=== PATIENT | female | born 1980 | race Caucasian/White ===

== ENCOUNTER 2023-09-19 15:09 | Outpatient (AMB) | payer BC, SELFPAY ==
--- NOTE | 2023-09-19 15:15 | MHC.OFFVIS ---
Intake Vital Signs 09/19/23 15:19 Height 5 ft 7 in Weight 195 lb BMI 30.5 BP 117/58 L Blood Pressure Location Lt brachial Position Sitting Pulse 87 Pulse Source Pulse Oximeter Pulse Oximetry (%) 100 Oxygen Delivery Method Room Air Intake Visit Reasons: Back pain/confirmed Allergies sulfamethoxazole [From Bactrim] Allergy (Unknown, Verified 09/19/23 15:17) Hives trimethoprim [From Bactrim] Allergy (Unknown, Verified 09/19/23 15:17) Hives HPI Back pain/confirmed HPI Details Patient is a pleasant 43 years old female with history of chronic back pain and chronic UTIs, presents today for initial evaluation of chronic right sided low back pain. Denies any past or recent trauma, injury or falls. Back pain is axial with facet mediated and discogenic components as well as paraspinal muscle tenderness and spasms. Reports no improvement with PT, massage and over the counter medication and topical applications. Heat alleviates her symptoms temporarily and partially. She completed renal US and lumbar spine MRI which are noted below and show normal renal study and mild changes of multilevel lumbar spondylosis without central or neuroforaminal stenoses. Patient is hesitant toward interventional treatments at this time. She would like to proceed with acupuncture referral and muscle relaxant trial. Denies any fever, abdominal or groin pain, weakness, foot drop, bladder or bowel dysfunction or saddle anesthesia. Location Right lower back pain Duration 1+ years Characteristics of symptom or complaint Pulsing, throbbing, pounding, dull, sore, numbness, aching, heavy Aggravating or associated factors Prolonged standing, sitting, laying Relieving factors Heat therapy, Tylenol Treatment PT- no improvement, full body massage-minimal improvement PFSH Medical History (Updated 09/20/23 @ 14:13 by LIANET Huggins) Back pain Hernia Acute hemorrhoid Gall stones Social History (Updated 09/19/23 @ 15:21 by Mercedez Kaur) Alcohol intake: current Alcohol intake frequency: a few times a month Patient Tobacco Use Status: Never used Tobacco Review of Systems Const All systems reviewed & are unremarkable except as noted in HPI and below Reports as per HPI, Denies body aches, Denies chills, Denies difficulty sleeping, Reports fatigue, Denies fever(s), Denies frequent falls, Denies malaise, Denies weakness and Denies weight loss Denies hematuria, Denies difficulty voiding, Denies dysuria, Denies pelvic pain and Denies urinary incontinence Musc Reports as per HPI, Denies abnormal gait, Reports back pain, Denies myalgias, Denies arthralgias, Denies numbness, Denies radiating pain into limb, Reports stiffness and Denies tingling Neuro Denies abnormal gait, Denies frequent falls, Denies numbness, Denies Sensory deficit (Neuro), Denies tingling and Denies weakness Endo Reports fatigue Physical Exam Vital Signs: Last Vital Signs Pulse 87 09/19/23 15:19 BP 117/58 L 09/19/23 15:19 Pulse Ox 100 09/19/23 15:19 Oxygen Delivery Method Room Air 09/19/23 15:19 BMI result Body Mass Index 30.5 General: Appears afebrile. Alert and oriented. Mood and affect appropriate. Follows and participates in conversation appropriately. Respiratory effort is unlabored. No cough. Wearing a facemask. Able to transition from sit to stand unassisted. Ambulates with bilaterally normal heel strike and toe off. Back/Spine/Pelvis Other: Patient is able to walk and stand on heels and tip toes with no difficulties demonstrating good motor tone. No limping. Can flex forward to 70-80 degrees and extend to 5-10 degrees before experiencing lumbar pain. Demonstrates 5/5 strength of quadriceps bilaterally as well as flexion/dorsiflexion of bilateral feet against resistance. 2+ pedal pulses bilaterally. Seated straight leg rise with dorsiflexion negative bilaterally. +2 patellar and achilles reflexes bilaterally. Facet loading test positive bilaterally. Dayanara sign, Britton?s, Pelvic compression and Stinchfield tests are negative bilaterally. No groin pain with I/E hip rotations. Moderate paraspinals tenderness mostly on the right mid and lower back. Valsalva maneuver negative. Cervical Spine: cervical ROM normal and No Cervical spine tenderness Thoracic/Lumbar Spine: thoracic and lumbar spine normal to inspection, Thoracic/lumbar spine scar(s), Lasegue's sign negative, straight leg raise negative bilaterally, pain with thoraco-lumbar ROM, paraspinal muscle tenderness on the right in the lower thoracic, in the mid lumbar and in the lower lumbar, No thoracic spinal tenderness and No lumbar spinal tenderness Pelvis: no buttock tenderness Sacroiliac joints: bilaterally nontender Neuro General: CN's II-XI intact bilaterally and deep tendon reflexes 2+ bilaterally Gait exam (Neuro): Normal gait present and No Assistive device used Motor exam (neuro): 5/5 motor strength present throughout, no tremor noted and Motor abnormalities not present Sensory Exam: No Sensory deficit (Neuro) Extrem General: Yes capillary refill normal, Yes no clubbing, cyanosis or edema and Yes no calf tenderness Results Reviewed Results Reviewed: US RENAL 09/14/23 INDICATION: Right lower back pain/numbing. Shooting pain. Chronic UTI, six years ago. FINDINGS: The right kidney measures 10.6 cm in length. Renal cortical echotexture is normal. There is no hydronephrosis. There are no stones. There are no cysts. The left kidney measures 12.0 cm in length. Renal cortical echotexture is normal. There is no hydronephrosis. There are no stones. There are no cysts. There is a double collecting system. The bladder is mildly distended. IMPRESSION: No hydronephrosis bilaterally. MR LUMBAR SPINE WITHOUT CONTRAST 09/10/23 INDICATION: Back pain, TECHNIQUE: Standard protocol without contrast COMPARISON: None. FINDINGS: Vertebral body height is preserved. Conus demonstrates normal signal and terminates at L1 level. T12-L3: No significant abnormalities are seen. L3-L4 level shows shallow central disc bulge. Disc height is preserved. The canal, recesses and foramina are patent. At L4-L5 level, there is shallow central and foraminal disc bulge and minor facet arthrosis. No compromise of the canal, recesses or foramina is seen. At L5-S1 level, there is broad-based disc bulge and mild disc degeneration. The canal and recesses are patent. Mild bilateral foraminal stenosis is seen. No MRI evidence for spondylolysis is seen. There is dural sac cyst involving the sacral canal to the left of the midline at S3 level with scalloping of the adjacent bony anatomy, probably of no clinical significance. SI joints are preserved. IMPRESSION: Mild changes of multilevel lumbar spondylosis as detailed at individual levels above. No significant central canal stenosis is present at any level. Assessment & Plan Assessment & Plan (1) Low back pain: Code(s): M54.50 - Low back pain, unspecified (2) Muscle spasm of back: Code(s): M62.830 - Muscle spasm of back (3) Lumbar spondylosis: Code(s): M47.816 - Spondylosis without myelopathy or radiculopathy, lumbar region (4) Discogenic lumbar pain: Code(s): M54.59 - Other low back pain Plan Patient is hesitant toward interventional treatments at this time. She would like to proceed with acupuncture referral and muscle relaxant trial. Back pain is consistent with facetogenic and discogenic components with muscle stiffness and spasms. Scripts provided for Acupuncture therapy and methocarbamol. Side effects and precautions reviewed with patient. All questions and concerns have been answered and patient agreed with the plan. Follow up for medication review and sooner as needed. Orders: Referrals Acupuncture Referral M47.816 - Spondylosis without myelopathy or radiculopathy, lumbar region, M54.50 - Low back pain, unspecified, M62.830 - Muscle spasm of back Medications: New methocarbamol 750 mg PO Q8H 30 tabs 0RF muscle spasms M47.816 - Spondylosis without myelopathy or radiculopathy, lumbar region, M54.50 - Low back pain, unspecified, M62.830 - Muscle spasm of back Coding Level of Care Code New Pt Level 4 (83836) Diagnoses Low back pain M54.50 Muscle spasm of back M62.830 Lumbar spondylosis M47.816 Discogenic lumbar pain M54.59
[2023-09-19 15:19] VITALS: BP 117/58; PULSE 87; O2SAT 100; BMI 30.5
== END 2023-09-19 15:48 | disposition home or self-care (01) ==
PROVIDERS: PCP Nurse Practitioner Primary Care; Visit Provider Nurse Practitioner Family
DX: M54.50 Low back pain, unspecified (principal); M62.830 Muscle spasm of back; M47.816 Spondylosis without myelopathy or radiculopathy, lumbar region; M54.59 Other low back pain
CPT/HCPCS: 99204

== ENCOUNTER → 2023-09-19 15:09 | Outpatient (BNVA) | payer BC, SELFPAY | PROVIDERS: PCP Nurse Practitioner Primary Care; Visit Provider Nurse Practitioner Family ==